=== PATIENT | male | born 1995 | race Caucasian/White ===

== ENCOUNTER 2016-11-25 14:09 | Emergency (ER) | payer OTHER ==
[2016-11-25 14:22] VITALS: BP 121/74
--- NOTE | 2016-11-25 14:40 | UC ---
Lower Extremity/Ankle HPI - HPI Summary HPI Summary: Pt presents with c/o right foot pain, swelling and bruising s/p having his right foot stepped on 2X's on 11/23/16 while playing soccer barefoot. Pt is able to bear weight, ambulate and has full ROM. Is concerned about bruising on right foot. - History of Current Complaint Chief Complaint: UCLowerExtremity Stated Complaint: RIGHT FOOT INJURY Time Seen by Provider: 11/25/16 14:21 - Risk Factors Gout Risk Factors: Male DVT Risk Factors: Negative Septic Arthritis Risk Factor: Negative - Allergies/Home Medications Allergies/Adverse Reactions: Allergies Allergy/AdvReac Type Severity Reaction Status Date / Time No Known Allergies Allergy Verified 11/25/16 14:17 PMH/Surg Hx/FS Hx/Imm Hx Previously Healthy: Yes - Surgical History Surgical History: None - Family History Known Family History: Positive: Other - positive FMH for contusion - Social History Alcohol Use: None Substance Use Type: None Smoking Status (MU): Never Smoked Tobacco Review of Systems Constitutional: Negative Skin: Bruising Eyes: Negative ENT: Negative Respiratory: Negative Cardiovascular: Negative Gastrointestinal: Negative Genitourinary: Negative Motor: Other - bruising right foot Neurovascular: Negative Musculoskeletal: Arthralgia, Edema - right foot, Myalgia Neurological: Negative Psychological: Negative All Other Systems Reviewed And Are Negative: Yes Physical Exam Triage Information Reviewed: Yes Appearance: Well-Appearing Vital Signs: Initial Vital Signs Temp 98.7 F 11/25/16 14:11 Pulse 82 11/25/16 14:11 Resp 16 11/25/16 14:11 BP 121/74 11/25/16 14:11 Pulse Ox 100 11/25/16 14:11 Neck exam: Normal Respiratory Exam: Normal Musculoskeletal Exam: Other Musculoskeletal: Positive: Edema @ - right foot, dorsal aspect Neurological Exam: Normal Psychological Exam: Normal Skin Exam: Other - bruising right dorsal aspect of foot Lower Extremity Course/Dx - Differential Dx/Diagnosis Differential Diagnosis/HQI/PQRI: Contusion, Fracture (Closed) Provider Diagnoses: right foot contusion Discharge - Discharge Plan Condition: Stable Disposition: HOME Patient Education Materials: Foot Contusion (ED) Referrals: Hannah Stanley PA [Primary Care Provider] - If Needed
--- NOTE | 2016-11-25 14:44 | RAD ---
Indication: Right foot pain 3 views of the right foot demonstrates no fracture. No other bone or joint abnormality is noted. IMPRESSION: No fracture of the right foot is noted.
== END 2016-11-25 14:55 | disposition home or self-care (01) ==
LOC: UCCORT 14:09
DX: S90.31XA Contusion of right foot, initial encounter (principal); W50.0XXA Accidental hit or strike by another person, initial encounter; Y93.66 Activity, soccer; Y92.9 Unspecified place or not applicable
CPT/HCPCS: 99211; G0463